=== PATIENT | male | born 1965 | race Caucasian/White ===

== ENCOUNTER 2020-05-27 07:38 | Emergency (ER) | payer OTHER ==
[~2020-05-27] VITALS: Ht 175.3 cm; Wt 66.2 kg
[2020-05-27] MEDS ORDERED: TOPROL XL25 M1 PO (07:58)
== END 2020-05-27 11:19 | disposition home or self-care (01) ==
LOC: ER 07:38 → EDBD 07:38 → ER 08:02
DX: R21 Rash and other nonspecific skin eruption (principal); T78.49XA Other allergy, initial encounter; X58.XXXA Exposure to other specified factors, initial encounter